=== PATIENT | female | born 1995 | race African-American/Black ===

== ENCOUNTER 2017-10-14 18:05 | Emergency (ER) | payer MEDICAID, OTHER ==
[~2017-10-14] VITALS: Ht 162.6 cm; Wt 101.0 kg
[2017-10-14] MEDS ORDERED: MAGNESIUM/ALUMINUM HYDROXIDE/SIMETHICONE 30ML UDC PO ONE (23:00)
[2017-10-14] MEDS ORDERED: ONDANSETRON 4MG ODT PO ONE (23:00)
[2017-10-14] MEDS ORDERED: FAMOTIDINE 20MG TABLET PO ONE (23:00)
[2017-10-14 23:26] LABS: BASOPHILS % 0.7 % (0.0-2.0); EOSINOPHILS % 1.8 % (0.0-5.0); HEMATOCRIT. 36.4 % (36.0-48.0); HEMOGLOBIN. 12.4 g/dL (12.0-16.0); LYMPHOCYTES % 45.3 % (20.0-50.0); MEAN CORPUSCULAR HEMOGLOBIN 29.9 pg (28.0-32.0); MEAN CORPUSCULAR VOLUME 87.6 fL (81.0-99.0); MEAN PLATELET VOLUME 8.3 fl (7.4-10.4); MONOCYTES % 9.7 % (2.0-8.0); NEUTROPHILS % 42.5 % (40.0-76.0); PLATELET 299 x1000/uL (130-400); RED BLOOD CELL COUNT 4.16 mill/uL (4.2-5.4); RED CELL DISTRIBUTION WIDTH 12.9 % (11.6-14.6)
[2017-10-14 23:39] LABS: CHLORIDE 103 mEq/L (98-107)
[2017-10-15 00:05] VITALS: BP 103/59
== END 2017-10-15 00:26 | disposition home or self-care (01) ==
LOC: ER 18:05
DX: R10.84 Generalized abdominal pain (principal); R11.2 Nausea with vomiting, unspecified; R16.0 Hepatomegaly, not elsewhere classified
CPT/HCPCS: 36415; 80053; 81025; 85025; 99284; Q0162

== ENCOUNTER 2019-04-01 19:05 | Emergency (ER) | payer MEDICAID, OTHER ==
[~2019-04-01] VITALS: Ht 162.6 cm; Wt 246.0 kg
[2019-04-01] MEDS ORDERED: KETOROLAC 60MG/2ML VIAL IM ONE (20:45)
[2019-04-01] MEDS ORDERED: DICYCLOMINE HCL 20MG TABLET PO SCH (20:45)
[2019-04-01 21:04] LABS: CLARITY URINE CLEAR (CLEAR); COLOR URINE YELLOW (YELLOW); KETONES URINE NEGATIVE (NEGATIVE); LEUKOCYTE ESTERASE URINE NEGATIVE (NEGATIVE); NITRITE URINE NEGATIVE (NEGATIVE); OCCULT BLOOD URINE NEGATIVE (NEGATIVE); PROTEIN URINE NEGATIVE (NEGATIVE)
[2019-04-01 22:23] VITALS: BP 119/70
== END 2019-04-01 22:24 | disposition home or self-care (01) ==
LOC: ER 19:05
DX: M54.5 Low back pain (principal); K59.00 Constipation, unspecified
CPT/HCPCS: 81003; 81025; 96372; 99283; J1885

== ENCOUNTER 2019-05-27 11:24 | Emergency (ER) | payer MEDICAID ==
[~2019-05-27] VITALS: Ht 162.6 cm; Wt 109.0 kg
[2019-05-27 12:47] VITALS: BP 122/72
== END 2019-05-27 12:48 | disposition home or self-care (01) ==
LOC: ER 12:21
DX: J06.9 Acute upper respiratory infection, unspecified (principal)
CPT/HCPCS: 99283

== ENCOUNTER 2020-06-09 19:40 | Emergency (ER) | payer MEDICAID, OTHER ==
[~2020-06-09] VITALS: Ht 172.7 cm; Wt 92.0 kg
[2020-06-09] MEDS ORDERED: SODIUM CHLORIDE 0.9% 1,000 ML IV ONE (20:45)
[2020-06-09 21:02] LABS: BASOPHILS % 0.2 % (0.0-2.0); EOSINOPHILS % 0.7 % (0.0-5.0); HEMATOCRIT. 33.9 % (36.0-48.0); HEMOGLOBIN. 11.5 g/dL (12.0-16.0); LYMPHOCYTES % 21.3 % (20.0-50.0); MEAN CORPUSCULAR HEMOGLOBIN 30.1 pg (28.0-32.0); MEAN CORPUSCULAR VOLUME 88.5 fL (81.0-99.0); NEUTROPHILS % 68.8 % (40.0-76.0); PLATELET 284 x1000/uL (130-400); RED BLOOD CELL COUNT 3.83 mill/uL (4.2-5.4); RED CELL DISTRIBUTION WIDTH 12.5 % (11.6-14.6)
[2020-06-09 21:06] LABS: CHLORIDE 105 mEq/L (98-107)
[2020-06-09 21:12] LABS: CLARITY URINE TURBID (CLEAR); COLOR URINE YELLOW (YELLOW); KETONES URINE NEGATIVE (NEGATIVE); LEUKOCYTE ESTERASE URINE 2+ (NEGATIVE); NITRITE URINE NEGATIVE (NEGATIVE); OCCULT BLOOD URINE NEGATIVE (NEGATIVE); PH URINE >=9.0 (4.5-8.0); PROTEIN URINE TRACE (NEGATIVE); SPECIFIC GRAVITY URINE 1.022 (1.005-1.030)
[2020-06-09 21:25] LABS: *AMPHETAMINES SCREEN URINE NEGATIVE (NEGATIVE); *BARBITURATES SCREEN URINE NEGATIVE (NEGATIVE); *BENZODIAZEPINES SCREEN URINE NEGATIVE (NEGATIVE); *COCAINE SCREEN URINE NEGATIVE (NEGATIVE); METHADONE URINE SCREEN NEGATIVE (NEGATIVE); OPIATES URINE SCREEN NEGATIVE (NEGATIVE)
[2020-06-09 21:26] LABS: CANNABINOID URINE SCREEN NEGATIVE (NEGATIVE); PHENCYCLIDINE URINE SCREEN NEGATIVE (NEGATIVE)
[2020-06-09 21:30] LABS: B-HCG QUANTITATIVE 9255 mIU/mL (<3)
[2020-06-09] MEDS ORDERED: NITROFURANTOIN 100MG M/M CAPSULE PO ONE (21:45)
[2020-06-09 22:45] VITALS: BP 121/67
== END 2020-06-09 22:45 | disposition home or self-care (01) ==
LOC: ER 19:40
DX: O23.32 Infections of other parts of urinary tract in pregnancy, second trimester (principal); Z3A.19 19 weeks gestation of pregnancy; O99.012 Anemia complicating pregnancy, second trimester; E86.0 Dehydration; E46 Unspecified protein-calorie malnutrition; E88.09 Other disorders of plasma-protein metabolism, not elsewhere classified
CPT/HCPCS: 36415; 76805; 80053; 80305; 81003; 83880; 84484; 84702; 85025; 93005; 96360; 96361; 99285; J7030

== ENCOUNTER 2020-10-01 22:42 | Observation (INO) | payer MEDICAID ==
[~2020-10-01] VITALS: Ht 160 cm; Wt 117.9 kg
[2020-10-01] MEDS ORDERED: PNV1TABL76 MT (22:58)
[2020-10-01] MEDS ORDERED: LACTATED RINGERS 1,000 ML IV ONE (23:30)
[2020-10-01] MEDS ORDERED: TERBUTALINE SULFATE 1MG/ML VIAL SUBCUT NR (23:30)
[2020-10-01 23:56] LABS: CLARITY URINE CLOUDY (CLEAR); COLOR URINE YELLOW (YELLOW); KETONES URINE TRACE (NEGATIVE); LEUKOCYTE ESTERASE URINE 3+ (NEGATIVE); NITRITE URINE NEGATIVE (NEGATIVE); OCCULT BLOOD URINE NEGATIVE (NEGATIVE); PROTEIN URINE TRACE (NEGATIVE); SPECIFIC GRAVITY URINE 1.014 (1.005-1.030)
[2020-10-02] MEDS ORDERED: CEFAZOLIN 2,000 MG in DEXT 5% WATER 100 ML IV NR ×2
[2020-10-02] MEDS ORDERED: TERBUTALINE SULFATE 1MG/ML VIAL SUBCUT PRN (01:30)
[2020-10-02] MEDS: LACTATED RINGERS 1,000 ML IV SCH ×2 (01:49→09:50)
[2020-10-02] MEDS ORDERED: LACTATED RINGERS 1,000 ML IV SCH (02:00)
[2020-10-02 02:56] LABS: BASOPHILS % 0.1 % (0.0-2.0); EOSINOPHILS % 0.1 % (0.0-5.0); HEMATOCRIT. 35.7 % (36.0-48.0); HEMOGLOBIN. 11.7 g/dL (12.0-16.0); LYMPHOCYTES % 9.6 % (20.0-50.0); MEAN CORPUSCULAR HEMOGLOBIN 28.1 pg (28.0-32.0); MEAN CORPUSCULAR VOLUME 85.7 fL (81.0-99.0); MEAN PLATELET VOLUME 9.5 fl (7.4-10.4); MONOCYTES % 4.5 % (2.0-8.0); NEUTROPHILS % 85.7 % (40.0-76.0); PLATELET 250 x1000/uL (130-400); RED BLOOD CELL COUNT 4.17 mill/uL (4.2-5.4); RED CELL DISTRIBUTION WIDTH 13.4 % (11.6-14.6)
[2020-10-02 02:59] LABS: CHLORIDE 103 mEq/L (98-107)
[2020-10-02 03:07] LABS: PARTIAL THROMBOPLASTIN TIME 29.8 sec (23.4-31.0); PROTHROMBIN TIME 10.4 sec (9.6-11.0)
[2020-10-02 08:36] LABS: *BARBITURATES SCREEN URINE NEGATIVE (NEGATIVE)
[2020-10-02 08:37] LABS: *AMPHETAMINES SCREEN URINE NEGATIVE (NEGATIVE); *BENZODIAZEPINES SCREEN URINE NEGATIVE (NEGATIVE); *COCAINE SCREEN URINE NEGATIVE (NEGATIVE); METHADONE URINE SCREEN NEGATIVE (NEGATIVE); OPIATES URINE SCREEN NEGATIVE (NEGATIVE)
[2020-10-02 08:38] LABS: CANNABINOID URINE SCREEN NEGATIVE (NEGATIVE); PHENCYCLIDINE URINE SCREEN NEGATIVE (NEGATIVE)
[2020-10-02] MEDS ORDERED: CEFAZOLIN 2,000 MG in DEXT 5% WATER 100 ML IV SCH (09:00)
[2020-10-02 15:13] LABS: HEPATITIS B SURFACE ANTIGEN NEGATIVE
== END 2020-10-02 13:35 | disposition home or self-care (01) ==
LOC: 8 EST LDRP 22:42
PROVIDERS: ADMIT Obstetrics & Gynecology; ATTEND Obstetrics & Gynecology
DX: Z34.93 Encounter for supervision of normal pregnancy, unspecified, third trimester (principal); Z3A.36 36 weeks gestation of pregnancy
CPT/HCPCS: 36415; 59025; 76805; 76817; 76818; 80053; 80305; 81003; 82731; 85025; 85384; 85610; 85730; 86592; 86703; 86762; 86850; 86900; 86901; 87340; 96361; 96365; 96366; 96372; G0378; J0690; J3105; J7060; J7120; 96360; 99281

== ENCOUNTER 2020-10-27 18:41 | Observation (INO) | payer MEDICAID ==
[~2020-10-27] VITALS: Ht 160 cm; Wt 127.0 kg
[~2020-10-27 18:41] MED LIST: PNV1TABL76 MT
== END 2020-10-27 21:27 | disposition home or self-care (01) ==
LOC: 8 EST LDRP 18:41
PROVIDERS: ADMIT Obstetrics & Gynecology; ATTEND Obstetrics & Gynecology
DX: O36.8130 Decreased fetal movements, third trimester, not applicable or unspecified (principal); Z3A.38 38 weeks gestation of pregnancy
CPT/HCPCS: 59025; 76805; 76818; G0378; 99281

== ENCOUNTER 2020-11-04 00:16 | Emergency (ER) | payer MEDICAID ==
[~2020-11-04] VITALS: Ht 182.9 cm; Wt 118.0 kg
[2020-11-04] MEDS ORDERED: MAGNESIUM/ALUMINUM HYDROXIDE/SIMETHICONE 30ML UDC PO STA (01:07)
[2020-11-04] MEDS ORDERED: ACETAMINOPHEN 325MG TABLET PO STA (01:07)
[2020-11-04] MEDS ORDERED: ONDANSETRON HCL 4MG/2ML INJ IV STA (01:07)
[2020-11-04] MEDS ORDERED: SODIUM CHLORIDE 0.9% 1,000 ML IV ONE (01:15)
[2020-11-04 02:24] LABS: BASOPHILS % 0.4 % (0.0-2.0); EOSINOPHILS % 2.1 % (0.0-5.0); HEMATOCRIT. 35.5 % (36.0-48.0); HEMOGLOBIN. 12.2 g/dL (12.0-16.0); LYMPHOCYTES % 18.5 % (20.0-50.0); MEAN CORPUSCULAR HEMOGLOBIN 29.8 pg (28.0-32.0); MEAN CORPUSCULAR VOLUME 86.7 fL (81.0-99.0); MEAN PLATELET VOLUME 9.3 fl (7.4-10.4); MONOCYTES % 6.4 % (2.0-8.0); NEUTROPHILS % 72.6 % (40.0-76.0); PLATELET 229 x1000/uL (130-400); RED BLOOD CELL COUNT 4.09 mill/uL (4.2-5.4); RED CELL DISTRIBUTION WIDTH 14.6 % (11.6-14.6)
[2020-11-04 02:36] LABS: CHLORIDE 104 mEq/L (98-107)
[2020-11-04 04:44] LABS: CLARITY URINE CLEAR (CLEAR); COLOR URINE YELLOW (YELLOW); KETONES URINE TRACE (NEGATIVE); LEUKOCYTE ESTERASE URINE 1+ (NEGATIVE); NITRITE URINE NEGATIVE (NEGATIVE); OCCULT BLOOD URINE 2+ (NEGATIVE); PH URINE 8.5 (4.5-8.0); PROTEIN URINE 1+ (NEGATIVE); SPECIFIC GRAVITY URINE 1.013 (1.005-1.030)
[2020-11-04 05:15] VITALS: BP 145/92
== END 2020-11-04 05:16 | disposition home or self-care (01) ==
LOC: ER 00:16
DX: O90.89 Other complications of the puerperium, not elsewhere classified (principal); K80.20 Calculus of gallbladder without cholecystitis without obstruction; R03.0 Elevated blood-pressure reading, without diagnosis of hypertension
CPT/HCPCS: 36415; 71045; 76705; 80053; 81003; 83690; 85025; 93005; 96361; 96374; 99285; J2405; J7030

== ENCOUNTER 2020-12-17 19:32 | Emergency (ER) | payer MEDICAID ==
[~2020-12-17] VITALS: Ht 162.6 cm; Wt 117.0 kg
[2020-12-17 19:42] VITALS: BP 130/75
== END 2020-12-17 21:28 | disposition home or self-care (01) ==
LOC: ER 19:32
DX: Z48.02 Encounter for removal of sutures (principal); Z90.49 Acquired absence of other specified parts of digestive tract
CPT/HCPCS: 99281; Z7610

== ENCOUNTER 2021-09-07 10:52 | Emergency (ER) | payer MEDICAID ==
[~2021-09-07] VITALS: Ht 162.6 cm; Wt 111.0 kg
[2021-09-07 10:58] VITALS: BP 128/87
[2021-09-07] MEDS ORDERED: AMOX-494 PO (12:02)
[2021-09-07] MEDS ORDERED: IBUP-2029 PO (12:02)
== END 2021-09-07 12:15 | disposition home or self-care (01) ==
LOC: ER 10:52
DX: H66.91 Otitis media, unspecified, right ear (principal)
CPT/HCPCS: 99283

== ENCOUNTER 2022-05-25 21:37 | Emergency (ER) | payer MEDICAID ==
[~2022-05-25] VITALS: Ht 162.6 cm; Wt 118.0 kg
[~2022-05-25 21:37] MED LIST changes: +AMOX-494 PO; +IBUP-2029 PO
[2022-05-25 22:02] VITALS: BP 120/78
== END 2022-05-26 02:30 | disposition left against medical advice (07) ==
LOC: ER 21:37
DX: Z53.21 Procedure and treatment not carried out due to patient leaving prior to being seen by health care provider (principal)

== ENCOUNTER 2024-01-03 11:59 | Emergency (ER) | payer MEDICAID, OTHER ==
[~2024-01-03] VITALS: Ht 162.6 cm; Wt 127.0 kg
[2024-01-03 12:03] VITALS: O2SAT 99
[2024-01-03] MEDS ORDERED: CYCL10TA21 MT (12:30)
[2024-01-03] MEDS ORDERED: LIDO1ADH7 TP (12:30)
[2024-01-03] MEDS ORDERED: IBUP-2029 MT (12:30)
[2024-01-03 12:51] VITALS: BP 135/74; PULSE 80; RESP 18; TEMP 98.1
== END 2024-01-03 12:51 | disposition home or self-care (01) ==
LOC: ER 11:59
DX: M54.50 Low back pain, unspecified (principal); K80.20 Calculus of gallbladder without cholecystitis without obstruction; Z90.49 Acquired absence of other specified parts of digestive tract
CPT/HCPCS: 99283

== ENCOUNTER 2025-02-08 16:38 | Emergency (ER) | payer OTHER, MEDICAID ==
[~2025-02-08] VITALS: Ht 167.6 cm; Wt 91.0 kg
[~2025-02-08 16:38] MED LIST changes: +CYCL10TA21 MT; +IBUP-2029 MT; +LIDO1ADH7 TP
[2025-02-08] MEDS ORDERED: TOPUD PO (17:22)
[2025-02-08] MEDS ORDERED: AMOX1TAB16 MT (17:22)
[2025-02-08] MEDS ORDERED: IBUP-2029 MT (17:22)
[2025-02-08 17:25] VITALS: BP 124/71; PULSE 74; RESP 18; TEMP 36.9; O2SAT 97
[2025-02-08] MEDS: ACETAMINOPHEN 325MG TABLET PO STA (17:26)
[2025-02-08] MEDS: KETOROLAC 30MG/ML VIAL IM STA (17:26)
== END 2025-02-08 17:35 | disposition home or self-care (01) ==
LOC: ER 16:38
DX: K04.7 Periapical abscess without sinus (principal); Z90.49 Acquired absence of other specified parts of digestive tract; Z79.899 Other long term (current) drug therapy
CPT/HCPCS: 99283; 81025; 96372; J1885

== ENCOUNTER 2025-08-27 20:09 | Emergency (ER) | payer MEDICAID, OTHER ==
[~2025-08-27] VITALS: Ht 157.5 cm; Wt 113.2 kg
[~2025-08-27 20:09] MED LIST changes: +AMOX1TAB16 MT; +IBUP-1455 MT; +IBUP-1455 PO; -IBUP-2029 MT; -IBUP-2029 PO; +TOPUD PO
[2025-08-27 20:55] VITALS: O2SAT 98
[2025-08-27] MEDS: ACETAMINOPHEN 500MG TABLET PO ONE (22:33)
[2025-08-27] MEDS: LIDOCAINE 5% PATCH TOP SCH (22:34)
[2025-08-27] MEDS ORDERED: LIDO-53 TP (22:58)
[2025-08-27] MEDS ORDERED: NAPR-1176 MT (22:58)
[2025-08-27 23:13] VITALS: BP 107/52; PULSE 56; RESP 16; TEMP 36.9; O2SAT 100
== END 2025-08-27 23:22 | disposition home or self-care (01) ==
LOC: ER 20:09
DX: M25.522 Pain in left elbow (principal); Z79.1 Long term (current) use of non-steroidal anti-inflammatories (NSAID); Z90.49 Acquired absence of other specified parts of digestive tract; Z79.899 Other long term (current) drug therapy
CPT/HCPCS: 73080; 81025; 99283